=== PATIENT | female | born 1985 | race Caucasian/White ===

== ENCOUNTER → 2018-06-01 12:48 | Outpatient (CLI) | payer OTHER, SELFPAY | PROVIDERS: Visit Provider Physician Assistant | DX: R68.89 Other general symptoms and signs (principal) | CPT/HCPCS: 87400 ==

== ENCOUNTER → 2021-05-04 10:25 | Outpatient (CLI) | payer OTHER, SELFPAY ==
[2021-05-04 11:56] LABS: COVID19 -Nasal RAPID Negative (Negative)
== END ==
PROVIDERS: Visit Provider Physician Assistant
DX: Z20.822 Contact with and (suspected) exposure to COVID-19 (principal)
CPT/HCPCS: 87635

== ENCOUNTER → 2025-03-14 08:56 | Outpatient (CLI) | payer OTHER, SELFPAY ==
--- NOTE | 2025-03-14 08:58 | DI.CT.S_ITS ---
PROCEDURE: CT ABDOMEN PELVIS W CON INDICATIONS: Left lower quadrant abdominal pain TECHNIQUE: After the administration of intravenous contrast, axial sections acquired from the lung bases to the pubic symphysis. Coronal and sagittal reformats were performed. For radiation dose reduction, the following was used: automated exposure control, adjustment of mA and/or kV according to patient size. COMPARISON: None. FINDINGS: Image quality: Diagnostic. Lower Chest: Small incidental hiatal hernia. Postoperative changes are noted at the GE junction. No pleural or pericardial effusion. ABDOMEN: Liver: No solid mass. Gallbladder: Multiple gallstones without wall thickening or pericholecystic inflammation or fluid. Biliary ducts: No biliary dilation. Pancreas: No ductal dilation. Spleen: Size is within normal limits. Adrenal Glands: No adrenal nodules. Kidneys and Ureters: No hydronephrosis. No solid mass. No complex renal cystic lesion which requires follow up. Stomach and Bowel: Normal colonic caliber, without significant wall thickening. Postoperative changes from previous gastric sleeve procedure noted. Normal appendix. Diverticulosis noted without inflammation. Small volume contrast noted in the cecum. Contrast is noted throughout the small bowel. No significant contrast is noted in the remainder of the large bowel. Cecal contrast is lower density than the small bowel contrast. This may be due to early opacification. Peritoneum: No abnormal intraperitoneal fluid. No free air. Ventral Wall: No significant ventral hernia. Abdominal Nodes: No retroperitoneal or mesenteric adenopathy by size criteria. Vessels: Aorta and inferior vena cava are normal in size. PELVIS: Pelvic Organs: 3.2 cm hypoattenuating left ovarian cyst. Otherwise, normal pelvic organs. Bladder: No bladder wall thickening, accounting for underdistention. Pelvic Nodes: No enlarged lymph nodes. Miscellaneous: No inguinal hernias are seen. Bones: No aggressive osseous abnormality. IMPRESSION: No acute abnormality in the abdomen or pelvis. Diverticulosis. Normal appendix. No inflammation. Status post gastric sleeve procedure. No complications identified. Cholelithiasis without inflammation to suggest acute cholecystitis. Normal CBD. Dictated by: Ruth Lai M.D. on 03/14/2025 at 15:08 Approved by: Ruth Lai M.D. on 03/14/2025 at 15:16
== END ==
LOC: CT 08:58
PROVIDERS: PCP Family Medicine; Referring Provider Family Medicine; Visit Provider Family Medicine
DX: K80.20 Calculus of gallbladder without cholecystitis without obstruction (principal); K44.9 Diaphragmatic hernia without obstruction or gangrene; R10.32 Left lower quadrant pain; K57.90 Diverticulosis of intestine, part unspecified, without perforation or abscess without bleeding; N83.202 Unspecified ovarian cyst, left side; Z98.84 Bariatric surgery status
CPT/HCPCS: 74177; Q9967

== ENCOUNTER 2025-05-03 07:53 | Day surgery (SDC) | payer OTHER, SELFPAY ==
[2025-04-27 14:32] VITALS: BMI 27.4
[2025-05-03] VITALS (9 sets, daily range): BP systolic 123–172; BP diastolic 79–98; PULSE 68–102; RESP 16–20; TEMP 36.6–36.8; O2SAT 96–99
--- NOTE | 2025-05-03 | PATH_ITS ---
[facility] Accession Number: [id number] No. of containers..01 Tissue . 01 Material submitted: . gallbladder - GALLBLADDER . 01 Diagnosis: GALLBLADDER, CHOLECYSTECTOMY: Cholelithiasis with mild chronic cholecystitis. No evidence of neoplasm. MRV 05/06/2025 1324 Local . 01 Electronically signed: . Campbell Hannon MD, PhD, Pathologist NPI- [id number] . 01 Gross description: . The specimen is received in formalin, labeled with two patient identifiers and gallbladder is a 7.1 x 2.8 x 2.7 cm intact gallbladder. The serosal surface is matta-pink, smooth and glistening. There is a 0.3 x 0.2 cm clipped probe patent cystic duct which is inked blue. The specimen is opened to show a 0.1cm in thickness intact gallbladder wall. The mucosa is matta-green, coarsely granular and focally effaced. No mucosal abnormality or polyps are appreciated. The lumen is filled with a 3.8 x 3.0 x 1.8 cm aggregate of yellow, multifaceted gallstones. Band Teacher sections of gallbladder to include the cystic duct are submitted in cassette A1. ([id number]) /MRV 05/04/2025 1434 Local . 01 Pathologist provided ICD-10: K80.60 . 01 CPT . 592111 Specimen Comment: A courtesy copy of this report has been sent to [facility] Pathology Performed at: [address] [id number] MD Tima Yuen MD Phone: [phone]
--- NOTE | 2025-05-03 06:40 | PM.PREOP ---
Pre-operative Note Interval Note History & Physical reviewed/Exam performed by Physician: Yes Changes to H&P: No ASA Class (for procedural sedation): I
[2025-05-03] MEDS: ACETAMINOPHEN 325 MG TABLET 975 MG PO (08:40)
[2025-05-03] MEDS: LACTATED RINGERS 1,000 ML 42 ML IV ×2 (08:41→10:11)
[2025-05-03] MEDS: FAMOTIDINE 20 MG/2 ML VIAL IV (08:41)
--- NOTE | 2025-05-03 09:31 | SUR.OPER ---
Supine on padded OR bed, head on pillow, safety belt at thigh, left arm padded and tucked at side. Right arm secured on padded arm board <90 degrees abduction. Legs uncrossed. Padded footboard in place. Tape over blanket to secure lower legs. Final positioning done by provider
[2025-05-03] MEDS: BUPivacaine 0.25% W/ EPI (PF) 30 ML VIAL 60 ML INJ (10:05)
--- NOTE | 2025-05-03 10:26 | P.OP_ITS ---
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 The patient received appropriate preoperative antibiotics and DVT prophylaxis.? Surgical time-out was performed with all team members in agreement.? The pneumoperitoneum was established under direct vision using the Cotto direct trocar cutdown technique.?We were able to use a lower pressure of 12mmHg to reduce postop pain. An 0 Vicryl [id number]-[id number] suture was placed on the umbilical fascia.? The 10 mm 30 degree lens was inserted and no trauma secondary to the trocar insertion was noted.? We performed bilateral laparoscopic TAP blocks using 25 cc of 0.25% Marcaine with epinephrine.? The additional 10 cc of local was used in the skin and subcutaneous tissues at the incision sites for a total of 60 cc of local.? The patient was placed in reverse Trendelenburg, [id number] position.? The fundus of the gallbladder was grasped and retracted over the liver.? The infundibulum was retracted laterally for proper exposure of the cystic duct and artery.?The gallbladder was noted to be tense and distended, but graspable. It was full of moderate sized stones. Critical view of safety was achieved with 2 distinct structures entering the gallbladder and segment 5 of the liver posterior.? A cholangiogram was performed using a yellow ureteral catheter through the Pena clamp.? The cystic duct and cystic artery were skeletonized with hook cautery.? A clip was placed on the cystic duct next to the gallbladder.? A ductotomy was made with laparoscopic Metzenbaum scissors.? The cholangiogram was normal.? It demonstrated normal caliber right and left hepatic ducts, common hepatic duct and common bile duct without filling defect, mass or stricture.? The contrast flowed unobstructed into the duodenum.? The cholangiogram catheter was removed and the cystic duct was doubly clipped and divided.? The cystic artery was similarly skeletonized, doubly clipped and divided with laparoscopic Metzenbaum scissors.? The adhesions between the gallbladder and the liver were divided with hook cautery.? The gallbladder was placed into an endo-pouch and removed.? The gallbladder bed and clips were inspected and no bleeding or bile drainage was noted.? The trocars were removed and there was no bleeding noted at the trocar sites.? The 0 Vicryl onyxhe-ks-aymoc suture was tied and there were no palpable fascial defects.? The skin incisions were closed using 4-0 Monocryl in a subcuticular manner.? Dermabond glue was applied as a final dressing.? The estimated blood loss was minimal.? The instrument sponge and needle counts were all correct x2.? The patient tolerated the procedure well and was extubated in the operating room and transported to the recovery area in stable condition. Complications: none Post-operative Condition: stable Disposition: PACU Plan for aftercare: PACU then home
[2025-05-03] MEDS: ONDANSETRON 4 MG/2 ML INJ IV (10:59)
== END 2025-05-03 11:39 | disposition home or self-care (01) ==
PROVIDERS: PCP Family Medicine; Referring Provider Family Medicine; Visit Provider Surgery
PROC: 0FT44ZZ Resection of Gallbladder, Percutaneous Endoscopic Approach (ICD-10-PCS; CPT 47563; principal; 2025-05-03 09:15)
DX: K80.10 Calculus of gallbladder with chronic cholecystitis without obstruction (principal); Z87.891 Personal history of nicotine dependence
CPT/HCPCS: 47563; 81025; J0689; J1100; J1171; J1885; J2405; J2704; J3010; J7120; Q9967